=== PATIENT | female | born 1960 | race Caucasian/White ===

== ENCOUNTER 2022-11-04 20:45 | Day surgery (SDC) | payer BC ==
[2022-11-04] MEDS ORDERED: fentaNYL 100 MCG/2 ML SDV IVPUSH ONE (21:04)
[2022-11-04] MEDS ORDERED: Sodium Chloride 0.9% 10 ML Syringe FLUSH PRN (21:04)
[2022-11-04] MEDS ORDERED: Metoclopramide 10 MG/2 ML SDV IVPUSH ONE (21:04)
[2022-11-04] MEDS ORDERED: Glucagon,Human Recombinant 1 MG Vial IVPUSH ONE ×2 (21:04→21:33)
[2022-11-04] MEDS ORDERED: Succinylcholine 200 MG/10 ML MDV ONE (23:03)
[2022-11-04] MEDS ORDERED: fentaNYL 100 MCG/2 ML SDV ONE (23:03)
[2022-11-04] MEDS ORDERED: Midazolam 1 MG/ML 2 ML SDV ONE (23:03)
[2022-11-04] MEDS ORDERED: Lidocaine 1% 4 ML ONE (23:05)
[2022-11-04] MEDS ORDERED: Propofol 200 MG/20 ML SDV ONE (23:05)
[2022-11-04] MEDS ORDERED: Ondansetron 4 MG/2 ML SDV ONE (23:06)
[2022-11-04] MEDS ORDERED: Lactated Ringers 1,000 ML ONE (23:11)
[2022-11-04] MEDS ORDERED: Dexamethasone 4 MG/ML SDV ONE (23:26)
[2022-11-05 00:34] VITALS: BP 99/65; PULSE 64
== END 2022-11-05 00:42 | disposition home or self-care (01) ==
LOC: JD.ED 20:45 → JD.SDS 22:29
PROVIDERS: ATTEND Surgery
DX: T18.128A Food in esophagus causing other injury, initial encounter (principal); K29.50 Unspecified chronic gastritis without bleeding; K21.00 Gastro-esophageal reflux disease with esophagitis, without bleeding; K29.80 Duodenitis without bleeding; E78.00 Pure hypercholesterolemia, unspecified; Z90.710 Acquired absence of both cervix and uterus; Z90.49 Acquired absence of other specified parts of digestive tract; Z79.899 Other long term (current) drug therapy; Y83.1 Surgical operation with implant of artificial internal device as the cause of abnormal reaction of the patient, or of later complication, without mention of misadventure at the time of the procedure
CPT/HCPCS: 43239; 96374; 96375; 99284; J0330; J1100; J1610; J2250; J2405; J2704; J2765; J3010; J3490; J7120; 00731; 99140; 99285